=== PATIENT | female | born 1955 ===

== ENCOUNTER → 2020-06-28 07:42 | Outpatient (BNVA) | payer OTHER, SELFPAY | PROVIDERS: PCP Hospitalist; Referring Provider Hospitalist; Visit Provider Surgery Vascular Surgery | DX: I83.11 Varicose veins of right lower extremity with inflammation (principal) | CPT/HCPCS: 37765 ==

== ENCOUNTER → 2020-08-01 09:10 | Outpatient (BNVA) | payer OTHER, SELFPAY | PROVIDERS: PCP Hospitalist; Visit Provider Surgery Vascular Surgery | DX: Z76.89 Persons encountering health services in other specified circumstances (principal) ==

== ENCOUNTER 2023-01-23 22:09 | Emergency (ER) | payer MEDICARE, SELFPAY ==
[2023-01-23 22:11] VITALS: BP 176/83; PULSE 91; RESP 18; TEMP 37; O2SAT 99; BMI 27.4
--- NOTE | 2023-01-24 00:22 | ED.GENADULT ---
HPI - General Adult General Chief complaint: Fall Stated complaint: fall/ Laceration Time Seen by Provider: 01/23/23 23:48 Source: patient, RN notes reviewed and old records reviewed Mode of arrival: ambulatory Limitations: no limitations History of Present Illness HPI narrative: 67-year-old female presents for evaluation after a fall Patient reports that she was trying to get into a boat and it was dark out She states that he was not well lit She slipped in between the dock and the boat and struck the left lower forehead against the boat causing a laceration Denies loss of consciousness Line headache, dizziness, blurry vision, nausea vomiting Patient is not anticoagulated Related Data Home Medications Medication Instructions Recorded Confirmed lisinopril 10 mg tablet 10 mg PO DAILY 08/01/20 Allergies Allergy/AdvReac Type Severity Reaction Status Date / Time Latex Allergy Unknown swelling Uncoded 02/29/20 00:00 Review of Systems Constitutional: Constitutional: Denies headache(s) ENT: Denies headache(s) Integumentary/Breasts: Skin/Breast: Reports wounds Neurologic: Denies headache(s) PMFSH Social History Social History Advance Directives: No Advance Directives Information Provided: No Physical Exam ED Vital Signs: Vital Signs - 24 hr 01/23/23 22:11 Temperature 98.6 F Pulse Rate 91 Respiratory Rate 18 Blood Pressure 176/83 H Pulse Oximetry 99 Oxygen Delivery Method Room Air BMI result Body Mass Index 27.4 Const General: healthy appearing, comfortable, no acute distress, alert and awake Nutritional Appearance: well nourished Orientation/consciousness: patient oriented x3 Eyes Eyelids: Yes eyelids normal Conjunctivae: conjunctivae normal Sclerae: sclerae normal Corneas: corneas normal Pupils: Equal, round and reactive pupils present EOM: EOMs intact bilaterally Neck Neck: Yes full ROM Resp Effort & Inspection: normal respiratory effort, able to speak in complete sentences and not labored Skin Other: 3 cm linear, full-thickness laceration just above the left eyebrow. Bleeding controlled General skin exam: elasticity normal Neuro General: patient oriented x3 Cranial nerves: Yes CN's II-XII intact bilaterally, Yes Equal, round and reactive pupils present and Yes Bilaterally intact EOM present Cognition (Neuro): normal cognition Extrem Other: Moving all extremities well without any obvious deformities Procedures Laceration Laceration 1: Site: face Side (If applicable): left (Eyebrow) Size (cm): 3 Description: linear Depth: simple, single layer Local Anesthetic: with epi Amount of anesthesia used (mL): 5 Skin layer closed with: nylon Size (cm): 5-0 Number of sutures: 5 Technique: simple, interrupted Medical Decision Making Medical Decision Making MDM Narrative: 59-year-old female presents for evaluation of a laceration after falling and striking the left side of her face against a boat. She denies any headache or neuro complaints or concerns. Her neuro exam is benign. She is not on anticoagulation. I did offer CT scan the brain that the patient declines. See procedure note for wound repair Differential Diagnosis Laceration Puncture wound Skin tear Abrasion Intracranial hemorrhage Concussion Tests considered The following testing was considered but not selected: CT scan of the brain Discharge Plan Discharge Clinical Impression: Facial laceration Patient Disposition: Home, Self-Care Instructions: Laceration (ED) Additional Instructions: You had 5 sutures placed today. These can be removed in 5-7 days You declined a tetanus booster today. Call your doctor to make sure you are up-to-date Follow-up with your primary doctor Return for new or worsening symptoms, especially severe headache
== END 2023-01-24 00:28 | disposition home or self-care (01) ==
PROVIDERS: Emergency Provider Emergency Medicine; PCP Internal Medicine
DX: S01.81XA Laceration without foreign body of other part of head, initial encounter (principal); W22.8XXA Striking against or struck by other objects, initial encounter; Y93.19 Activity, other involving water and watercraft; Y92.89 Other specified places as the place of occurrence of the external cause; Y99.9 Unspecified external cause status
CPT/HCPCS: 12013; 99282; 99284